=== PATIENT | male | born 1980 | race Caucasian/White ===

== ENCOUNTER 2020-01-13 18:22 | Emergency (ER) | payer OTHER, SELFPAY ==
[2020-01-13 18:27] VITALS: BP 196/103; PULSE 88; RESP 18; TEMP 37; O2SAT 100; BMI 32.5
--- NOTE | 2020-01-13 18:31 | ED_ITS ---
HPI - Abdominal Pain General: Chief Complaint: Abdominal Pain Stated Complaint: abd pain Time Seen by Provider: 01/13/20 18:27 Source: patient Mode of arrival: ambulatory Limitations: no limitations History of Present Illness: HPI narrative: Symptoms started when he was driving home MD elicited complaint: flank pain Pertinent past history: kidney stones Onset (ago): minute(s) (30) Pain Consistency: constant Location: L flank Severity: severe Quality: sharp Radiation: LLQ Exacerbating factors: nothing Relieving factors: nothing Associated Symptoms: Reports chills and nausea; Denies anorexia, belching, bloating, change in bowel habits, change in stool character, coffee ground emesis, constipation, GI cramping, diarrhea, dyspepsia, dysuria, excessive flatus, fever(s), heartburn, hematochezia, hematuria, hematemesis, fecal incontinence, loose stools, melena, poor appetite, syncope, vomiting and other Review of Systems General: Reports: 10 or more systems reviewed and unremarkable except in HPI and below Const: Reports: chills; Denies: fever(s) Eyes: Denies: change in vision or blurry vision ENMT: Denies: throat pain, enlarged tonsils, odynophagia, hoarseness, mouth pain or swelling of lips/tongue Card: Denies: syncope Resp: Denies: dyspnea, productive cough or non-productive cough GI: Reports: nausea; Denies: vomiting, hematemesis, coffee ground emesis, heartburn, diarrhea, constipation, bloating, GI cramping, belching, excessive flatus, fecal incontinence, change in bowel habits, change in stool character, hematochezia, melena or other : Denies: dysuria or hematuria Musc: Denies: neck pain, back pain or extremity swelling Skin/Breast: Denies: rash, pruritus or erythema Neuro: Denies: headache(s), numbness in extremities or weakness in extremities Endo: Denies: polyuria, polydipsia or tired all the time Physical Exam Const: COMMON NORMALS: average body habitus, patient oriented x3, no limitations, healthy appearing, alert and well nourished GENERAL APPEARANCE: in distress OTHER: He is lying down prone HENMT: COMMON NORMALS: normocephalic, atraumatic and moist oral mucous membranes HEAD & SCALP: normocephalic and atraumatic Neck/C-Spine: COMMON NORMALS: no meningeal signs and no JVD Resp: COMMON NORMALS: normal respiratory effort, No retractions, No use of accessory muscles, clear to auscultation bilaterally and percussion normal AUSCULTATION: clear to auscultation bilaterally PERCUSSION: percussion normal Cardio: COMMON NORMALS: no JVD, regular rate, regular rhythm, S1 normal heart sound present, S2 normal heart sound present, No gallops present (Cardio), No clicks present (Cardio), No murmurs present (Cardio), No rub (Cardio) and Peripheral pulses 2+ throughout RATE: regular rate RHYTHM: regular rhythm HEART SOUNDS: S1 normal heart sound present and S2 normal heart sound present PERIPHERAL PULSES: Peripheral pulses 2+ throughout GI: COMMON NORMALS: Normal to inspection, nondistended, normoactive bowel sounds present, Soft to palpation, non-tender, No hepatosplenomegaly present, no masses and no bruits PALPATION: Yes Soft to palpation and Yes No hepatosplenomegaly present : COMMON NORMALS: Yes no CVA tenderness BLADDER/KIDNEY EXAM: Yes no CVA tenderness Back/Pelvis: COMMON NORMALS: no CVA tenderness Extremity: COMMON NORMALS: normal to inspection, full ROM, capillary refill normal, no calf tenderness and no pedal edema Neuro: COMMON NORMALS: patient oriented x3 SENSORIUM/ORIENTATION: Yes alert MENINGEAL SIGNS: Yes no meningeal signs Skin: COMMON NORMALS: no rashes or lesions noted, no wounds, turgor normal, no jaundice, no petechiae and no mottling GENERAL SKIN EXAM: no rashes or lesions noted and turgor normal Course Reevaluation(s): Reevaluation #1: Pain is much improved, however he still has just a little bit of pain. He is yet to give us urine and will attempt to do that now. Time: 19:50 Reevaluation #2: Discussed his urine results with him. Negative for acute findings other than ketonuria suggesting dehydration. We will send him home with a prescription for pain medicine for a few days. He also appears to be hemoconcentrated. Advised fluids. He voiced understanding and is in agreement with the plan Time: 20:57 Vital Signs: Vital signs: Vital Signs Temperature 98.6 F 01/13/20 18:27 Pulse Rate 88 01/13/20 18:27 Respiratory Rate 18 01/13/20 18:27 Blood Pressure 196/103 01/13/20 18:27 Pulse Oximetry 100 01/13/20 18:27 MDM - Abdominal Pain MDM Narrative: Medical decision making narrative: Patient with left flank pain. Evaluation in the emergency department was negative for acute findings other than likely dehydration. He is discharged home with pain medication. Medical Records: Attestation: I reviewed the patient's medical records. Lab Data: Attestation: I reviewed the patient's lab results. Labs: Lab Results 01/13/20 01/13/20 01/13/20 Range/Units 18:38 18:38 18:54 WBC 10.3 H (4.0-10.0) 10^3/ uL RBC 6.05 H (4.1-5.3) 10^6/u L Hgb 17.2 H (11.7-16.6) g/dL Hct 51.1 (42.0-52.0) % MCV 84.5 (80-94) fL MCH 28.4 (28.0-34.0) pg MCHC 33.7 (30.0-36.0) g/dL RDW 12.3 (12.1-15.1) % Plt Count 316 (130-400) 10^3/c mm MPV 10.3 (7.4-10.4) fL Neut % (Auto) 70.5 % Lymph % (Auto) 19.2 % [place] % (Auto) 6.7 % Eos % (Auto) 2.7 % Baso % (Auto) 0.5 % Neut # (Auto) 7.22 (1.8-7.7) 10^3/u L Lymph # (Auto) 2.0 (0.8-4.8) 10^3/u L [place] # (Auto) 0.7 (0.2-0.9) 10^3/u L Eos # (Auto) 0.3 (0.0-0.8) 10^3/u L Baso # (Auto) 0.1 (0.0-0.1) 10^3/u L Nucleated RBC % (a uto) 0 % Nucleated RBCs # 0.0 /100WBC Sodium Cancelled 138 Potassium Cancelled 3.8 Chloride Cancelled 103 Carbon Dioxide Cancelled 24 Anion Gap Cancelled 14.8 BUN Cancelled 21 H Creatinine Cancelled 1.1 GFR Calculation Cancelled 74.1 L Glucose Cancelled 110 Calculated Osmolal ity Cancelled 290 Calcium Cancelled 9.0 Total Bilirubin Cancelled 0.4 AST Cancelled 22 ALT Cancelled 23 Alkaline Phosphata se Cancelled 83 Total Protein Cancelled 7.8 Albumin Cancelled 4.6 Globulin Cancelled 3.2 Lipase Cancelled 17 Urine Color (Yellow) Urine Appearance (CLEAR) Urine pH (5-7) Ur Specific Gravit y (1.005-1.030) Urine Protein (Negative) Urine Glucose (UA) (Normal) Urine Ketones (Negative) Urine Blood (Negative) Urine Nitrate (Negative) Urine Bilirubin (Negative) Urine Urobilinogen (Negative) mg/dL Ur Leukocyte Michelle ase (Negative) 01/13/20 Range/Units 19:53 WBC (4.0-10.0) 10^3/ uL RBC (4.1-5.3) 10^6/u L Hgb (11.7-16.6) g/dL Hct (42.0-52.0) % MCV (80-94) fL MCH (28.0-34.0) pg MCHC (30.0-36.0) g/dL RDW (12.1-15.1) % Plt Count (130-400) 10^3/c mm MPV (7.4-10.4) fL Neut % (Auto) % Lymph % (Auto) % [place] % (Auto) % Eos % (Auto) % Baso % (Auto) % Neut # (Auto) (1.8-7.7) 10^3/u L Lymph # (Auto) (0.8-4.8) 10^3/u L [place] # (Auto) (0.2-0.9) 10^3/u L Eos # (Auto) (0.0-0.8) 10^3/u L Baso # (Auto) (0.0-0.1) 10^3/u L Nucleated RBC % (a uto) % Nucleated RBCs # /100WBC Sodium Potassium Chloride Carbon Dioxide Anion Gap BUN Creatinine GFR Calculation Glucose Calculated Osmolal ity Calcium Total Bilirubin AST ALT Alkaline Phosphata se Total Protein Albumin Globulin Lipase Urine Color Yellow (Yellow) Urine Appearance Clear (CLEAR) Urine pH 6 (5-7) Ur Specific Gravit y 1.025 (1.005-1.030) Urine Protein Neg (Negative) Urine Glucose (UA) Norm (Normal) Urine Ketones 1+ H (Negative) Urine Blood Neg (Negative) Urine Nitrate Negative (Negative) Urine Bilirubin Neg (Negative) Urine Urobilinogen Norm (Negative) mg/dL Ur Leukocyte Michelle ase Negative (Negative) Discharge Plan Discharge Patient Disposition: Home Clinical Impression: Acute abdominal pain in left flank, Dehydration Condition: Stable Prescriptions: [place] 5-325 mg tablet 1 tab PO Q8H PRN (Reason: pain) Qty: 10 RF: 0 No Action No Known Home Medications RF: 0 Discharge Orders: Discharge Order (Routine); Ordered 01/13/20 Ordered By: Maddie Wang Discharge Diet: Usual diet Discharge Activity: Increase activity as tolerated Patient Instructions: Dehydration (ED), Abdominal Pain (ED), Flank Pain (ED) Activity Restrictions/Additional Instructions: Return for any new or worsening symptoms. Follow-up with your primary care provider within 3 days. Take the pain medication as needed for severe pain. Drink plenty of fluids to keep well-hydrated Coding Level of Care Code ED [employer] for Luis Antonio Fwd Exam Comprehensive
[2020-01-13 18:42] LABS: Basophils # 0.1 10^3/uL (0.0-0.1); Basophils % 0.5 %; Eosinophils # 0.3 10^3/uL (0.0-0.8); Eosinophils % 2.7 %; Hematocrit 51.1 % (42.0-52.0); Hemoglobin 17.2 g/dL (11.7-16.6); Lymphocytes % 19.2 %; Mean Corpuscular HGB Conc 33.7 g/dL (30.0-36.0); Mean Corpuscular Hemoglobin 28.4 pg (28.0-34.0); Mean Corpuscular Volume 84.5 fL (80-94); Mean Platelet Volume 10.3 fL (7.4-10.4); Monocytes # 0.7 10^3/uL (0.2-0.9); Monocytes % 6.7 %; Neutrophils # 7.22 10^3/uL (1.8-7.7); Neutrophils % 70.5 %; Nucleated Red Blood Cells % 0 %; Platelet Count 316 10^3/cmm (130-400); Red Blood Count 6.05 10^6/uL (4.1-5.3); Red Cell Distribution Width 12.3 % (12.1-15.1); White Blood Count 10.3 10^3/uL (4.0-10.0)
[2020-01-13] MEDS: ketorolac 30 mg/mL INJ 15 MG IVP (18:42)
[2020-01-13] MEDS: orphenadrine 30 mg/mL Inj 2 mL 60 MG IVP (18:42)
[2020-01-13 19:18] LABS: Alanine Aminotransferase 23 U/L (0-41); Albumin Level 4.6 g/dL (3.5-5.2); Alkaline Phosphatase 83 IU/L (40-130); Blood Urea Nitrogen 21 mg/dL (6-20); Carbon Dioxide 24 mmol/L (22-29); Chloride 103 mmol/L (98-107); Creatinine Clr Calc Pharmacy 103.9596; Globulin 3.2 g/dL (1.3-4.6); Glomerular Filtration Rate 74.1 mL/min (90-130); Glucose 110 mg/dL (65-115); Lipase 17 U/L (13-60); Osmolality Calculated 290 mOsm/kg (285-295); Sodium 138 mmol/L (136-145); Total Bilirubin 0.4 mg/dL (0.15-1.2); Total Protein 7.8 g/dL (6.6-8.7)
[2020-01-13 19:28] LABS: Anion Gap 14.8 (5-19); Aspartate Amino Transferase 22 U/L (0-40); Potassium 3.8 mmol/L (3.5-5.1)
[2020-01-13 20:10] LABS: Add Urine Microscopic? NO
[2020-01-13 20:31] LABS: Bilirubin Urine Neg (Negative); Blood Urine Neg (Negative); Glucose Urine UA Norm (Normal); Ketones Urine 1+ (Negative); Leukocyte Esterase Urine Negative (Negative); Nitrate Urine Negative (Negative); Protein Urine Neg (Negative); Specific Gravity, Urine 1.025 (1.005-1.030); Urine Appearance Clear (CLEAR); Urine Color Yellow (Yellow); Urobilinogen Urine Norm (Negative); pH Urine 6 (5-7)
[2020-01-13] MEDS: HYDROcodone-acetaminophen 5-325 mg Tablet 3 TAB PO (21:18)
[2020-01-13 21:21] VITALS: BP 146/101; PULSE 88; RESP 16; O2SAT 96
== END 2020-01-13 21:23 | disposition home or self-care (01) ==
PROVIDERS: Emergency Provider Family Medicine
DX: R10.9 Unspecified abdominal pain (principal); E86.0 Dehydration
CPT/HCPCS: 12345; 36415; 80053; 81003; 83690; 85025; 99282; J1885; J2360